=== PATIENT | female | born 1930 | race Caucasian/White ===

== ENCOUNTER 2016-07-12 02:48 | Emergency (ER) | payer MEDICARE ==
[~2016-07-12] VITALS: Ht 172.7 cm; Wt 72.0 kg
[~2016-07-12 02:48] MED LIST: ALEN35TA6 PO; AZIT500T PO; CEFD300C2 PO; CETI10CA PO; DIAZ5TAB PO; DIGO250T PO; ESCI5TAB PO; FAMO20TA7 PO; FERR325T20 PO; FLUT1DIS3 INH; FOLI-17 PO; FURO-93 PO; GUAI10LI PO; GUAI600T22 PO; LACT1CAP24 PO; LEVO50TA PO; LOSA50TA6 PO; MONT10TA6 PO; POTA10TA11 PO; RIVA20TA PO; SODI45SP4 NAS
[2016-07-12] MEDS ORDERED: OXYMETAZOLINE NASAL SPRAY 0.05%, 15ML ONE (02:54)
[2016-07-12 04:39] VITALS: BP 138/87
== END 2016-07-12 05:01 | disposition home or self-care (01) ==
LOC: ED 04:52
DX: R04.0 Epistaxis (principal); J44.9 Chronic obstructive pulmonary disease, unspecified; I48.91 Unspecified atrial fibrillation; I11.0 Hypertensive heart disease with heart failure; I50.40 Unspecified combined systolic (congestive) and diastolic (congestive) heart failure; E07.9 Disorder of thyroid, unspecified
CPT/HCPCS: 99283

== ENCOUNTER 2016-07-13 22:17 | Inpatient (IN) | payer MEDICARE ==
[~2016-07-13] VITALS: Ht 172.7 cm; Wt 74.1 kg
[~2016-07-13 22:17] MED LIST changes: -CEFD300C2 PO; +CEFD300C37 PO
[2016-07-13] MEDS ORDERED: OXYMETAZOLINE NASAL SPRAY 0.05%, 15ML ONE (22:55)
[2016-07-13] MEDS ORDERED: SODIUM CHLORIDE 0.9% 1,000ML IVBOLUS ONE (23:00)
[2016-07-13] MEDS ORDERED: OXYMETAZOLINE NASAL SPRAY 0.05%, 15ML NAS ONE ×2 (23:00)
[2016-07-13] MEDS ORDERED: SODIUM CHLORIDE FLUSH 10ML SYR IVF ONE (23:00)
[2016-07-13 23:48] LABS: BLOOD UREA NITROGEN 27 mg/dL (7-18)
[2016-07-14] MEDS ORDERED: LORazepam 2 MG/ML, 1ML IVPush ONE (01:00)
[2016-07-14] MEDS ORDERED: LORazepam 2 MG/ML, 1ML ONE (01:03)
[2016-07-14] MEDS ORDERED: MORPHINE SULFATE 4 MG/ML, 1ML IVPush PRN (02:00)
[2016-07-14] MEDS ORDERED: ONDANSETRON 2MG/ML, 2ML IVPush ONE (02:00)
[2016-07-14] MEDS ORDERED: LABETALOL 5MG/ML, 20ML IV PRN (02:00)
[2016-07-14] MEDS ORDERED: PHYTONADIONE 10 MG/ML, 1ML SQ ONE (02:00)
[2016-07-14] MEDS ORDERED: ONDANSETRON 2MG/ML, 2ML IVP PRN (02:00)
[2016-07-14] MEDS ORDERED: SODIUM CHLORIDE NASAL SPRAY 45ML BOTTLE NAS PRN (02:00)
[2016-07-14] MEDS ORDERED: BISACODYL 10 MG SUPP PR PRN (02:00)
[2016-07-14] MEDS ORDERED: PHYTONADIONE 10 MG/ML, 1ML ONE (02:28)
[2016-07-14] MEDS ORDERED: ONDANSETRON 2MG/ML, 2ML ONE (02:28)
[2016-07-14] MEDS ORDERED: DIGO125T PO (02:37)
[2016-07-14] MEDS ORDERED: LABETALOL 5MG/ML, 20ML ONE (03:09)
[2016-07-14 03:53] VITALS: BP 157/73
[2016-07-14] MEDS: SODIUM CHLORIDE 0.9% 1,000 ML IV SCH ×3 (04:34→20:54)
[2016-07-14 06:51] VITALS: BP 145/70
[2016-07-14] MEDS ORDERED: MONTELUKAST 10 MG TABLET PO SCH (09:00)
[2016-07-14] MEDS ORDERED: ALENDRONATE 35 MG TABLET PO SCH (09:00)
[2016-07-14] MEDS ORDERED: LOSARTAN 50MG TABLET PO SCH (09:00)
[2016-07-14] MEDS ORDERED: DIGOXIN 0.25 MG TABLET PO SCH ×2 (09:00)
[2016-07-14] MEDS: FERROUS SULFATE 325 MG TABLET PO SCH ×2 (09:17→20:56)
[2016-07-14] MEDS: CITALOPRAM 10 MG TABLET PO SCH (09:18)
[2016-07-14] MEDS: FOLIC ACID 1 MG TABLET PO SCH (09:18)
[2016-07-14] MEDS: LEVOTHYROXINE 50 MCG TABLET PO SCH (09:19)
[2016-07-14] MEDS: CEPHALEXIN 500 MG CAPSULE PO SCH ×3 (11:00→20:56)
[2016-07-14] MEDS ORDERED: ACETAMINOPHEN 325 MG TABLET PO PRN (12:30)
[2016-07-14 12:31] VITALS: BP 161/68
[2016-07-14] MEDS ORDERED: COCAINE TOPICAL SOLN 4%, 4ML TP ONE (13:00)
[2016-07-14 20:00] VITALS: BP 158/73
[2016-07-14] MEDS ORDERED: DIAZEPAM 5 MG TABLET PO SCH (21:00)
[2016-07-14] MEDS ORDERED: LOSA50TA6 PO (21:06)
[2016-07-14] MEDS: LOSARTAN 50MG TABLET PO SCH (22:17)
[2016-07-15 02:00] VITALS: BP 145/76
[2016-07-15 05:24] LABS: BLOOD UREA NITROGEN 13 mg/dL (7-18)
[2016-07-15] MEDS: CEPHALEXIN 500 MG CAPSULE PO SCH ×2 (05:50→12:37)
[2016-07-15] MEDS: LEVOTHYROXINE 50 MCG TABLET PO SCH (05:51)
[2016-07-15 07:14] VITALS: BP 151/64
[2016-07-15] MEDS: CITALOPRAM 10 MG TABLET PO SCH (08:12)
[2016-07-15] MEDS: FOLIC ACID 1 MG TABLET PO SCH (08:13)
[2016-07-15] MEDS: LOSARTAN 50MG TABLET PO SCH (08:13)
[2016-07-15] MEDS: FERROUS SULFATE 325 MG TABLET PO SCH (08:13)
[2016-07-15] MEDS ORDERED: CEPH-376 PO (09:44)
== END 2016-07-15 14:28 | disposition home or self-care (01) | DRG 813 ==
LOC: ED 23:59 → SUATTDRO 07-14 01:34 → EDIP 07-14 01:42 → 5SO 07-14 03:28 → DCLOUNGE 07-15 13:51
PROC: 2Y41X5Z Packing of Nasal Region using Packing Material (ICD-10-PCS; principal; 2016-07-14)
PROC: 2Y41X5Z Packing of Nasal Region using Packing Material (ICD-10-PCS; 2016-07-14)
DX: D68.32 Hemorrhagic disorder due to extrinsic circulating anticoagulants (principal); D68.59 Other primary thrombophilia; E87.1 Hypo-osmolality and hyponatremia; Q78.2 Osteopetrosis; T45.515A Adverse effect of anticoagulants, initial encounter; R04.0 Epistaxis; I48.2 Chronic atrial fibrillation; D69.6 Thrombocytopenia, unspecified; E03.9 Hypothyroidism, unspecified; J44.9 Chronic obstructive pulmonary disease, unspecified; F32.9 Major depressive disorder, single episode, unspecified; I11.0 Hypertensive heart disease with heart failure; I50.9 Heart failure, unspecified; Z79.01 Long term (current) use of anticoagulants; F41.1 Generalized anxiety disorder; J32.9 Chronic sinusitis, unspecified; M81.0 Age-related osteoporosis without current pathological fracture; Z85.828 Personal history of other malignant neoplasm of skin; Z87.891 Personal history of nicotine dependence; Z92.3 Personal history of irradiation; G25.81 Restless legs syndrome; H53.8 Other visual disturbances; Z90.710 Acquired absence of both cervix and uterus; Z90.89 Acquired absence of other organs
CPT/HCPCS: 30903; 36415; 70480; 80048; 82040; 85018; 85025; 85610; 96361; 96372; 96374; 96375; 99283; J3430; J2060; J7030

== ENCOUNTER 2016-07-20 20:17 | Emergency (ER) | payer MEDICARE ==
[~2016-07-20] VITALS: Ht 172.7 cm; Wt 70.0 kg
[~2016-07-20 20:17] MED LIST changes: +CEFD300C2 PO; -CEFD300C37 PO; +CEPH-376 PO; +DIGO125T PO
[2016-07-20] MEDS ORDERED: SODIUM CHLORIDE FLUSH 10ML SYR IVF ONE (20:30)
[2016-07-20] MEDS ORDERED: FAMOTIDINE 20 MG/2 ML IVP ONE (20:30)
[2016-07-20] MEDS ORDERED: SODIUM CHLORIDE 0.9% 1,000ML IVBOLUS ONE (20:30)
[2016-07-20] MEDS ORDERED: ONDANSETRON 2MG/ML, 2ML IVPush ONE (20:30)
[2016-07-20] MEDS ORDERED: ONDANSETRON 2MG/ML, 2ML ONE (20:58)
[2016-07-20] MEDS ORDERED: FAMOTIDINE 20 MG/2 ML ONE (20:58)
[2016-07-20 21:01] LABS: HEMOGLOBIN 10.2 g/dL (11.7-16.4)
[2016-07-20 21:11] LABS: ASPARTATE AMINO TRANSFERASE 20 U/L (15-37); BLOOD UREA NITROGEN 10 mg/dL (7-18)
[2016-07-20] MEDS ORDERED: ALBUTEROL SULFATE 2.5 MG/3 ML ONE (21:30)
[2016-07-20] MEDS ORDERED: ALBUTEROL SULFATE 2.5 MG/3 ML NPPB ONE (21:30)
[2016-07-20 21:44] LABS: IS PT STATUS REG ER OR PRE ER? YES
[2016-07-20 23:13] VITALS: BP 147/63
== END 2016-07-21 00:12 | disposition home or self-care (01) ==
LOC: ED 23:00
DX: R11.2 Nausea with vomiting, unspecified (principal); J44.1 Chronic obstructive pulmonary disease with (acute) exacerbation; R19.7 Diarrhea, unspecified; R10.30 Lower abdominal pain, unspecified; F41.1 Generalized anxiety disorder; I48.91 Unspecified atrial fibrillation; I11.0 Hypertensive heart disease with heart failure; I50.9 Heart failure, unspecified
CPT/HCPCS: 36415; 71010; 80053; 81001; 83880; 84484; 85025; 93005; 94640; 96361; 96374; 96375; 99285; J2405; J7030; J7512; S0028

== ENCOUNTER → 2016-09-22 | Outpatient (CLI) | payer MEDICARE ==
[~2016-09-22] MED LIST changes: -CEFD300C2 PO; +CEFD300C37 PO
== END | disposition home or self-care (01) ==
LOC: CFH 10:41
PROVIDERS: ATTEND Internal Medicine Cardiovascular Disease
DX: I08.3 Combined rheumatic disorders of mitral, aortic and tricuspid valves (principal); I48.91 Unspecified atrial fibrillation; I10 Essential (primary) hypertension
CPT/HCPCS: 93306

== ENCOUNTER → 2016-12-01 | Outpatient (CLI) | payer MEDICARE ==
[~2016-12-01] MED LIST changes: +FERR325T18 PO; -FERR325T20 PO; -GUAI600T22 PO; +GUAI600T31 PO
== END | disposition home or self-care (01) ==
LOC: CFH 15:33
PROVIDERS: ATTEND Physician Assistant
DX: M41.86 Other forms of scoliosis, lumbar region (principal); M47.897 Other spondylosis, lumbosacral region; M19.071 Primary osteoarthritis, right ankle and foot; E03.9 Hypothyroidism, unspecified; I10 Essential (primary) hypertension; I50.1 Left ventricular failure, unspecified; J45.909 Unspecified asthma, uncomplicated; F32.9 Major depressive disorder, single episode, unspecified; E78.1 Pure hyperglyceridemia; I48.2 Chronic atrial fibrillation; J44.0 Chronic obstructive pulmonary disease with (acute) lower respiratory infection; I27.2 Other secondary pulmonary hypertension; R42 Dizziness and giddiness; R53.82 Chronic fatigue, unspecified; C44.91 Basal cell carcinoma of skin, unspecified; M10.9 Gout, unspecified; M79.673 Pain in unspecified foot; R04.0 Epistaxis; R09.02 Hypoxemia
CPT/HCPCS: 72072; 72110

== ENCOUNTER → 2017-05-10 | Outpatient (CLI) | payer MEDICARE ==
[~2017-05-10] MED LIST changes: +OMNIPAQUE 350 MG/ML, 100ML BOTTLE ONE
== END ==
LOC: CFH 12:48
PROVIDERS: ATTEND Physician Assistant
DX: M51.36 Other intervertebral disc degeneration, lumbar region (principal); M41.86 Other forms of scoliosis, lumbar region; J44.0 Chronic obstructive pulmonary disease with (acute) lower respiratory infection; I48.2 Chronic atrial fibrillation; E03.9 Hypothyroidism, unspecified; I50.1 Left ventricular failure, unspecified; E78.1 Pure hyperglyceridemia; M79.673 Pain in unspecified foot; R93.5 Abnormal findings on diagnostic imaging of other abdominal regions, including retroperitoneum
CPT/HCPCS: 74177; 82565; Q9967

== ENCOUNTER → 2017-06-07 | Outpatient (CLI) | payer MEDICARE ==
[~2017-06-07] MED LIST changes: -OMNIPAQUE 350 MG/ML, 100ML BOTTLE ONE
== END ==
LOC: CFH 15:37
PROVIDERS: ATTEND Physician Assistant
DX: J18.9 Pneumonia, unspecified organism (principal); R93.5 Abnormal findings on diagnostic imaging of other abdominal regions, including retroperitoneum; E03.9 Hypothyroidism, unspecified; I10 Essential (primary) hypertension; I50.1 Left ventricular failure, unspecified; E78.1 Pure hyperglyceridemia; I48.2 Chronic atrial fibrillation; J44.0 Chronic obstructive pulmonary disease with (acute) lower respiratory infection; I27.20 Pulmonary hypertension, unspecified; M80.00XD Age-related osteoporosis with current pathological fracture, unspecified site, subsequent encounter for fracture with routine healing; R42 Dizziness and giddiness; R53.82 Chronic fatigue, unspecified; C44.91 Basal cell carcinoma of skin, unspecified; R09.02 Hypoxemia; M10.9 Gout, unspecified; M79.673 Pain in unspecified foot; R04.0 Epistaxis; M79.671 Pain in right foot
CPT/HCPCS: 71046

== ENCOUNTER → 2017-10-30 | Outpatient (CLI) | payer MEDICARE | END | disposition home or self-care (01) | LOC: CFH 14:13 | PROVIDERS: ATTEND Internal Medicine | DX: R92.1 Mammographic calcification found on diagnostic imaging of breast (principal) | CPT/HCPCS: 77065; 77066; G0279 ==

== ENCOUNTER 2018-04-02 12:22 | Emergency (ER) | payer MEDICARE ==
[~2018-04-02] VITALS: Ht 170.2 cm; Wt 72.3 kg
[~2018-04-02 12:22] MED LIST changes: -LOSA50TA6 PO; +LOSA50TA7 PO
[2018-04-02 13:13] LABS: BASOPHILS # (AUTO) 0.04 x10^3/uL (0-0.1); BASOPHILS % (AUTO) 0 % (0-1); EOSINOPHILS # (AUTO) 0.18 x10^3/uL (0-0.4); EOSINOPHILS % (AUTO) 2 % (1-7); LYMPHOCYTES # (AUTO) 1.12 x10^3/uL (1-3.4); LYMPHOCYTES % (AUTO) 13 % (22-44); MD NO; MEAN CORPUSCULAR HEMOGLOBIN 32.1 pg (27.0-34.8); MEAN CORPUSCULAR HGB CONC 33.4 g/dL (32.4-35.8); MEAN CORPUSCULAR VOLUME 96.3 fL (80-100); MEAN PLATELET VOLUME 7.2 fL (7.4-10.4); MONOCYTES # (AUTO) 0.69 x10^3/uL (0.2-0.8); MONOCYTES % (AUTO) 8 % (2-9); NEUTROPHILS # (AUTO) 6.46 x10^3/uL (1.8-6.8); NEUTROPHILS % (AUTO) 76 % (42-75); PLATELET COUNT 296 x10^3/uL (130-400); RED CELL DISTRIBUTION WIDTH 14.1 % (9.6-15.2)
[2018-04-02 13:25] LABS: ALBUMIN 3.7 g/dL (3.4-5.0); ANION GAP 5 mmol/L (5-15); CALCIUM 9.5 mg/dL (8.5-10.1); CHLORIDE 108 mmol/L (98-107); CREATININE 0.77 mg/dL (0.55-1.02)
[2018-04-02 15:11] VITALS: BP 154/62
[2018-04-02] MEDS ORDERED: ASPI-496 PO (15:19)
[2018-04-02] MEDS ORDERED: ACET325T14 PO (15:19)
== END 2018-04-02 15:35 | disposition home or self-care (01) ==
LOC: ED 13:02
DX: L03.116 Cellulitis of left lower limb (principal); I48.91 Unspecified atrial fibrillation; J44.9 Chronic obstructive pulmonary disease, unspecified; I11.9 Hypertensive heart disease without heart failure; Z87.891 Personal history of nicotine dependence
CPT/HCPCS: 36415; 80048; 82040; 85025; 93005; 99284

== ENCOUNTER 2018-05-29 04:27 | Emergency (ER) | payer MEDICARE ==
[~2018-05-29] VITALS: Ht 172.7 cm; Wt 68.0 kg
[~2018-05-29 04:27] MED LIST changes: +ACET325T14 PO; +ASPI-496 PO; +LOSA50TA14 PO; -LOSA50TA7 PO
[2018-05-29] MEDS ORDERED: OMEG1CAP23 PO (04:52)
[2018-05-29] MEDS ORDERED: MULT-717 PO (04:52)
[2018-05-29] MEDS ORDERED: MAGN400T36 PO (04:52)
[2018-05-29] MEDS ORDERED: CYAN10005 PO (04:52)
[2018-05-29] MEDS ORDERED: SILVER NITRATE STICK TP ONE (05:14)
[2018-05-29] MEDS ORDERED: TRANEXAMIC ACID 100 MG/ML, 10ML TP STA (05:37)
[2018-05-29] MEDS ORDERED: TRANEXAMIC ACID 100 MG/ML, 10ML ONE (05:38)
[2018-05-29 06:26] VITALS: BP 183/72
== END 2018-05-29 06:41 | disposition home or self-care (01) ==
LOC: ED 06:25
DX: R04.0 Epistaxis (principal); I11.0 Hypertensive heart disease with heart failure; I50.9 Heart failure, unspecified; J44.9 Chronic obstructive pulmonary disease, unspecified; I48.91 Unspecified atrial fibrillation; F41.1 Generalized anxiety disorder
CPT/HCPCS: 30901; 99284

== ENCOUNTER 2018-08-17 11:10 | Outpatient (CLI) | payer MEDICARE ==
[~2018-08-17 11:10] MED LIST changes: +CYAN10005 PO; +MAGN400T36 PO; +MULT-717 PO; +OMEG1CAP23 PO
== END 2018-08-17 23:59 | disposition home or self-care (01) ==
LOC: CFH 11:10
PROVIDERS: ATTEND Internal Medicine Cardiovascular Disease
DX: I08.3 Combined rheumatic disorders of mitral, aortic and tricuspid valves (principal)
CPT/HCPCS: 93306

== ENCOUNTER → 2018-08-20 | Outpatient (CLI) | payer MEDICARE | END | disposition home or self-care (01) | LOC: CFH 07:41 | PROVIDERS: ATTEND Physician Assistant | DX: R60.0 Localized edema (principal) | CPT/HCPCS: 93970 ==